=== PATIENT | male | born 2000 | race Caucasian/White ===

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

== ENCOUNTER 2020-05-30 16:07 | Inpatient (IN) ==
[2020-05-30] MEDS ORDERED: NS 0.9% 1000 ml BAG 1,000 ML IV ONE (19:20)
[2020-05-30 20:01] LABS: ABS Eosinophils 0.2 10^3/ul (0-0.6); ABS Lymphocytes 2.3 10^3/ul (1.0-4.8); ABS Monocytes 0.6 10^3/ul (0-0.8); ABS Neutrophils 3.3 10^3/ul (1.5-7.7); Eosinophil % 2.6 %; Hematocrit 45 % (42-52); Hemoglobin 15.4 g/dL (14.0-18.0); Lymphocyte % 35.5 %; Mean Corpuscular HGB Conc 35 g/dL (31-36); Mean Corpuscular Hemoglobin 32 pg (27-31); Mean Corpuscular Volume 93 fL (80-94); Mean Platelet Volume 9.5 fL (7.4-10.4); Platelet Count 157 10^3/uL (150-450); Red Blood Count 4.82 10^6 /uL (4.18-5.48); Red Cell Distribution Width 13 % (10-15); White Blood Count 6.4 10^3/uL (3.5-10.8)
[2020-05-30 20:10] LABS: Urine Bacteria Absent (Absent); Urine Red Blood Cell Absent (Absent); Urine White Blood Cell Trace(0-5/hpf) (Absent)
[2020-05-30 20:14] LABS: ALT 11 U/L (7-52); AST 13 U/L (13-39); Albumin 4.8 g/dL (3.2-5.2); Alkaline Phosphatase 59 U/L (34-104); Anion Gap 7 mmol/L (2-11); BUN/Creatinine Ratio 14.3 (8-20); Blood Urea Nitrogen 14 mg/dL (6-24); CO2 Carbon Dioxide 30 mmol/L (22-32); Calcium 9.9 mg/dL (8.6-10.3); Chloride 102 mmol/L (101-111); Creatine Kinase 59 U/L (10-223); EGFR African American 119.2 (>60); EGFR Non-African American 98.5 (>60); Globulin 2.4 g/dL (2-4); Glucose 95 mg/dL (70-100); Magnesium 1.8 mg/dL (1.9-2.7); Potassium 4.1 mmol/L (3.5-5.0); Sodium 139 mmol/L (135-145); Total Protein 7.2 g/dL (6.4-8.9)
[2020-05-30 20:25] LABS: Urine Benzodiazepine Screen None Detected (None Detect); Urine Cannabinoids Screen None Detected (None Detect); Urine Opiates Screen None Detected (None Detect)
[2020-05-30 20:30] LABS: Alcohol, S < 10 mg/dL (<10)
[2020-05-30 20:45] LABS: TSH Ultra Thyroid Stim Horm 4.27 mcIU/mL (0.34-5.60)
[2020-05-30 20:54] LABS: Urine Appearance Clear; Urine Bilirubin Negative (Negative); Urine Blood Negative (Negative); Urine Color Straw; Urine Glucose Negative (Negative); Urine Ketones Negative (Negative); Urine Nitrite Negative (Negative); Urine Protein Negative (Negative); Urine Specific Gravity 1.011 (1.002-1.030); Urine Urobilinogen Negative (Negative)
[2020-05-30 21:29] LABS: Acetaminophen < 15 mcg/mL; Salicylate < 2.50 mg/dL (<30); Valproic Acid < 13.0 mcg/mL (50-100)
[2020-05-31] MEDS ORDERED: Al Hydrox/Mg Hydrox/Simet LIQ 30 ML UDC PO PRN (07:41)
[2020-05-31] MEDS: Vitamin THERAPEUTIC TAB PO SCH (10:32)
[2020-06-01] MEDS: Vitamin THERAPEUTIC TAB PO SCH (08:45)
[2020-06-01 08:55] LABS: HDL Cholesterol 41.4 mg/dL
[2020-06-02] MEDS: Vitamin THERAPEUTIC TAB PO SCH (08:41)
[2020-06-03] MEDS: Vitamin THERAPEUTIC TAB PO SCH (08:36)
[2020-06-04] MEDS: Vitamin THERAPEUTIC TAB PO SCH (10:10)
[2020-06-05] MEDS: Vitamin THERAPEUTIC TAB PO SCH (08:02)
[2020-06-06] MEDS: Vitamin THERAPEUTIC TAB PO SCH (08:18)
[2020-06-07] MEDS: Vitamin THERAPEUTIC TAB PO SCH (08:06)
[2020-06-07] MEDS: CMCS:Lactase Enzyme (NF) 3,000 UNIT TAB PO SCH (17:33)
[2020-06-08] MEDS: Vitamin THERAPEUTIC TAB PO SCH (08:37)
[2020-06-08] MEDS: CMCS:Lactase Enzyme (NF) 3,000 UNIT TAB PO SCH ×3 (08:37→17:34)
[2020-06-08 22:32] LABS: Albumin 4.7 g/dL (3.2-5.2); Albumin/Globulin Ratio 1.9 (1-3); EGFR African American 119.2 (>60); EGFR Non-African American 98.5 (>60); Globulin 2.5 g/dL (2-4); Total Bilirubin 0.3 mg/dL (0.2-1.0); Total Protein 7.2 g/dL (6.4-8.9)
[2020-06-08 22:47] LABS: Potassium 3.9 mmol/L (3.5-5.0)
[2020-06-08 22:50] LABS: Urine Appearance Clear; Urine Bilirubin Negative (Negative); Urine Blood Negative (Negative); Urine Color Yellow; Urine Glucose Negative (Negative); Urine Ketones Negative (Negative); Urine Nitrite Negative (Negative); Urine Protein Negative (Negative); Urine Specific Gravity 1.012 (1.002-1.030); Urine Urobilinogen Negative (Negative)
[2020-06-09] MEDS: CMCS:Lactase Enzyme (NF) 3,000 UNIT TAB PO SCH ×3 (11:02→16:27)
[2020-06-09] MEDS: Vitamin THERAPEUTIC TAB PO SCH (11:02)
[2020-06-09] MEDS ORDERED: COVID-19 VACCINE, MRNA(PFIZER)/PF 30 MCG/0.3 ML IM ONE (14:00)
[2020-06-10] MEDS: Vitamin THERAPEUTIC TAB PO SCH (08:27)
[2020-06-10] MEDS: CMCS:Lactase Enzyme (NF) 3,000 UNIT TAB PO SCH ×3 (08:27→19:24)
[2020-06-11] MEDS: Vitamin THERAPEUTIC TAB PO SCH (08:43)
[2020-06-11] MEDS: CMCS:Lactase Enzyme (NF) 3,000 UNIT TAB PO SCH ×3 (08:46→17:45)
[2020-06-12] MEDS: CMCS:Lactase Enzyme (NF) 3,000 UNIT TAB PO SCH ×3 (09:21→16:43)
[2020-06-12] MEDS: Vitamin THERAPEUTIC TAB PO SCH (09:22)
[2020-06-13] MEDS: CMCS:Lactase Enzyme (NF) 3,000 UNIT TAB PO SCH ×3 (09:47→16:46)
[2020-06-13] MEDS: Vitamin THERAPEUTIC TAB PO SCH (09:47)
[2020-06-14] MEDS: CMCS:Lactase Enzyme (NF) 3,000 UNIT TAB PO SCH ×3 (08:37→19:25)
[2020-06-14] MEDS: Vitamin THERAPEUTIC TAB PO SCH (08:38)
[2020-06-15] MEDS: Vitamin THERAPEUTIC TAB PO SCH (09:49)
[2020-06-15] MEDS: CMCS:Lactase Enzyme (NF) 3,000 UNIT TAB PO SCH ×3 (09:49→18:04)
[2020-06-16] MEDS: Vitamin THERAPEUTIC TAB PO SCH (08:15)
[2020-06-16] MEDS: CMCS:Lactase Enzyme (NF) 3,000 UNIT TAB PO SCH ×3 (08:15→17:12)
[2020-06-17] MEDS: CMCS:Lactase Enzyme (NF) 3,000 UNIT TAB PO SCH ×3 (08:32→17:24)
[2020-06-17] MEDS: Vitamin THERAPEUTIC TAB PO SCH (09:00)
[2020-06-18] MEDS: Vitamin THERAPEUTIC TAB PO SCH (07:52)
[2020-06-18] MEDS: CMCS:Lactase Enzyme (NF) 3,000 UNIT TAB PO SCH ×3 (07:52→16:57)
[2020-06-19] MEDS: Vitamin THERAPEUTIC TAB PO SCH (08:16)
[2020-06-19] MEDS: CMCS:Lactase Enzyme (NF) 3,000 UNIT TAB PO SCH ×3 (08:16→17:22)
[2020-06-20] MEDS: CMCS:Lactase Enzyme (NF) 3,000 UNIT TAB PO SCH ×3 (06:58→15:56)
[2020-06-20] MEDS: Vitamin THERAPEUTIC TAB PO SCH (07:18)
[2020-06-21] MEDS: Vitamin THERAPEUTIC TAB PO SCH (07:50)
[2020-06-21] MEDS: CMCS:Lactase Enzyme (NF) 3,000 UNIT TAB PO SCH ×3 (07:50→17:00)
[2020-06-22] MEDS: Vitamin THERAPEUTIC TAB PO SCH (08:16)
[2020-06-22] MEDS: CMCS:Lactase Enzyme (NF) 3,000 UNIT TAB PO SCH ×3 (08:18→17:51)
[2020-06-23] MEDS: CMCS:Lactase Enzyme (NF) 3,000 UNIT TAB PO SCH ×3 (07:58→17:24)
[2020-06-23] MEDS: Vitamin THERAPEUTIC TAB PO SCH (09:11)
[2020-06-24] MEDS: CMCS:Lactase Enzyme (NF) 3,000 UNIT TAB PO SCH ×3 (10:08→19:17)
[2020-06-24] MEDS: Vitamin THERAPEUTIC TAB PO SCH ×2 (10:08→12:02)
[2020-06-25] MEDS: Vitamin THERAPEUTIC TAB PO SCH (07:54)
[2020-06-25] MEDS: CMCS:Lactase Enzyme (NF) 3,000 UNIT TAB PO SCH ×3 (08:38→17:04)
[2020-06-26] MEDS: Vitamin THERAPEUTIC TAB PO SCH (07:48)
[2020-06-26] MEDS: CMCS:Lactase Enzyme (NF) 3,000 UNIT TAB PO SCH ×3 (07:48→17:58)
[2020-06-27] MEDS: CMCS:Lactase Enzyme (NF) 3,000 UNIT TAB PO SCH ×3 (08:52→17:35)
[2020-06-27] MEDS: Vitamin THERAPEUTIC TAB PO SCH (08:52)
[2020-06-28] MEDS: CMCS:Lactase Enzyme (NF) 3,000 UNIT TAB PO SCH ×3 (09:13→16:32)
[2020-06-28] MEDS: Vitamin THERAPEUTIC TAB PO SCH (09:14)
[2020-06-29] MEDS: CMCS:Lactase Enzyme (NF) 3,000 UNIT TAB PO SCH ×3 (10:31→17:17)
[2020-06-29] MEDS: Vitamin THERAPEUTIC TAB PO SCH (10:31)
[2020-06-30] MEDS: CMCS:Lactase Enzyme (NF) 3,000 UNIT TAB PO SCH ×2 (08:46→12:56)
[2020-06-30] MEDS: Vitamin THERAPEUTIC TAB PO SCH (08:46)
[2020-06-30 09:14] VITALS: BP 126/61
== END 2020-06-30 14:10 | DRG 750 ==
LOC: ED 16:07 → BSU 05-31 04:08
PROVIDERS: ADMIT Psychiatry & Neurology Psychiatry; ATTEND Psychiatry & Neurology Psychiatry

== ENCOUNTER 2024-02-24 06:28 | Inpatient (IN) ==
[2024-02-24 07:50] LABS: ABS Lymphocytes 1.2 10^3/uL (1.0-4.8); ABS Monocytes 0.8 10^3/uL (0.0-1.1); ABS Neutrophils 8.5 10^3/uL (1.5-7.6); ABS Nucleated RBC 0.01 10^3/ul; Hematocrit 45.2 % (38-53); Hemoglobin 15.6 g/dL (13.2-16.3); Lymphocyte % 11.5 %; Mean Corpuscular Hemoglobin 31.2 pg (27-33); Mean Corpuscular Hgb Conc 34.4 g/dL (31-36); Mean Corpuscular Volume 90.7 fL (80-97); Mean Platelet Volume 9.8 fL (7.5-11.2); Platelet Count 185 10^3/uL (150-450); Red Blood Count 4.98 10^6/uL (4.06-5.63); Red Cell Distribution Width 13.1 % (12-17); White Blood Count 10.5 10^3/uL (3.6-10.2)
[2024-02-24 07:56] LABS: Urine Appearance Turbid; Urine Bilirubin Negative (Negative); Urine Blood Negative (Negative); Urine Color Yellow; Urine Glucose Negative (Negative); Urine Ketones Trace (Negative); Urine Nitrite Negative (Negative); Urine Protein 1+ (>=30 mg/dL) (Negative); Urine Specific Gravity 1.034 (1.002-1.030); Urine Urobilinogen Negative (Negative)
[2024-02-24 08:10] LABS: Urine Bacteria Absent /HPF (Absent); Urine Red Blood Cell 1+(3-5/hpf) /HPF (0-Trace); Urine Squamous Epithelial Cell Present /HPF (Absent); Urine White Blood Cell Trace(0-5/hpf) /HPF (0-Trace)
[2024-02-24 08:14] LABS: Urine Benzodiazepine Screen None Detected (None Detect); Urine Cannabinoids Screen Presumptive Positive (None Detect); Urine Opiates Screen None Detected (None Detect)
[2024-02-24 08:19] LABS: ALT 17 U/L (7-52); AST 15 U/L (13-39); Acetaminophen < 15 mcg/mL; Albumin 4.8 g/dL (3.5-5.7); Albumin/Globulin Ratio 2.4 (1-3); Alcohol, S < 13 mg/dL (<13); Alkaline Phosphatase 70 U/L (35-149); Anion Gap 11 mmol/L (2-16); Blood Urea Nitrogen 16 mg/dL (6-24); CO2 Carbon Dioxide 27 mmol/L (22-32); Calcium 9.7 mg/dL (8.6-10.3); Chloride 100 mmol/L (101-111); Creatinine, Serum 1.23 mg/dL (0.67-1.17); Glucose 132 mg/dL (70-100); Potassium 3.6 mmol/L (3.5-5.0); Salicylate < 2.50 mg/dL (<30); Sodium 138 mmol/L (135-145); Total Bilirubin 0.6 mg/dL (0.2-1.0); Total Protein 6.8 g/dL (6.4-8.9); eGFR CKD-EPI 84.6 (>60)
[2024-02-24 08:34] LABS: TSH Ultra Thyroid Stim Horm 2.95 mcIU/mL (0.34-5.60)
[2024-02-24] MEDS: Erythromycin OPTH OINT APPLIC OINT LEFT EYE SCH (09:30)
[2024-02-24] MEDS ORDERED: Al Hydrox/Mg Hydrox/Simet LIQ 30 ML UDC PO PRN (12:23)
[2024-02-24] MEDS ORDERED: OLANZapine 10 mg TAB*ODT PO PRN (12:25)
[2024-02-25 08:01] LABS: HDL Cholesterol 31.9 mg/dL
[2024-02-25] MEDS ORDERED: OLANZapine 5 mg TAB *ODT PO PRN (14:11)
[2024-03-02 07:38] LABS: ABS Monocytes 0.5 10^3/uL (0.0-1.1); ABS Neutrophils 2.2 10^3/uL (1.5-7.6); ABS Nucleated RBC 0.01 10^3/ul; Eosinophil % 0.1 %; Hematocrit 45.3 % (38-53); Hemoglobin 15.5 g/dL (13.2-16.3); Lymphocyte % 43.3 %; Mean Corpuscular Hgb Conc 34.2 g/dL (31-36); Mean Corpuscular Volume 90.6 fL (80-97); Mean Platelet Volume 8.8 fL (7.5-11.2); Nucleated Red Blood Cells % 0.1 %/100WBC (0.0-0.8); Platelet Count 150 10^3/uL (150-450); White Blood Count 4.7 10^3/uL (3.6-10.2)
[2024-03-05 10:45] VITALS: BP 130/78
== END 2024-03-05 11:15 | disposition home or self-care (01) | DRG 750 ==
LOC: ED 06:28 → BSU 09:16
PROVIDERS: ADMIT Psychiatry & Neurology Addiction Psychiatry; ATTEND Student in an Organized Health Care Education/Training Program